=== PATIENT | female | born 1990 | race African-American/Black ===

== ENCOUNTER 2019-08-06 12:51 | Emergency (ER) | payer OTHER, SELFPAY ==
--- NOTE | 2019-08-06 13:05 | ED_ITS ---
HPI - Wound/Laceration General Chief Complaint: Upper Respiratory Infection Stated Complaint: fever/sore throat Source: patient and RN notes reviewed Mode of arrival: ambulatory Limitations: no limitations Related Data Allergies Allergy/AdvReac Type Severity Reaction Status Date / Time No Known Allergies Allergy Mild Verified 05/20/19 16:40 Review of Systems Review of Systems: Narrative: CONSTITUTIONAL: Denies malaise, chills, sweats, or fever. EYES: Denies visual changes, redness, or discharge. ENT: Reports rhinorrhea, congestion, sinus pain, otalgia and sore throat. CARDIOVASCULAR: Denies chest pain, palpitations, or edema. RESPIRATORY: Reports cough. Denies dyspnea. GASTROINTESTINAL: Denies abdominal pain, nausea, vomiting, diarrhea SKIN: Denies rash or itching. MUSCULOSKELETAL: Denies myalgia. NEUROLOGIC: Denies headache. All systems reviewed & are unremarkable except as noted in HPI and below PMFSH Social History Social History Gender identity (if verbalized by the patient): Female Comments At time of signature, agree with nursing past medical, surgical, social and family history. There is no relevant family history pertinent to the presenting complaint Exam Narrative: Exam Narrative: GENERAL: Well-appearing, well-nourished, and in no acute distress. HEAD: Normocephalic EYES: PERRLA, conjunctivae clear ENT: Nares clear, turbinates edematous and erythematous, clear discharge. Mucous membranes moist. TM pearly rahman with dull light reflex bilaterally; no tragal tenderness. Oropharynx erythematous without lesions. Tonsils enlarged and without exudate, no drooling, no hoarseness, no trismus, uvula midline. NECK: Supple. No lymphadenopathy CHEST: Clear to auscultation, breath sounds equal. No wheezing, rhonchi, rales, or stridor. No respiratory distress, speaks in full sentences. HEART: Regular rate and rhythm. No murmur heard. SKIN: Warm, dry, no rash. NEURO: Alert and oriented x3. PSYCH: Normal mood and affect Course Course Emergency Course: Patient is aware of diagnosis, understands and agrees to treatment plan. Anticipatory guidance given. Patient agrees to follow-up as directed and is aware of reasons to seek care at the emergency department. Portions of this record may have been created with voice recognition software Vital Signs Vital signs: Reviewed. MDM - Wound/Laceration MDM Narrative Medical decision making narrative: Differential diagnosis considered: Strep pharyngitis, allergic rhinitis, upper respiratory tract infection, sinusitis, rhinosinusitis, nasopharyngitis. viral pharyngitis, otitis media, otitis externa, pneumonia, bronchitis, viral cough syndrome, viral syndrome, and influenza. Exam findings show no acute concerns or changes; patient is non- toxic appearing and is in no distress. Patient is appropriate for outpatient treatment and follow-up. Critical Care Time Critical Care Time Critical Care Time: No Discharge Plan Discharge Prescriptions: No Action fluticasone propionate [Flonase Allergy Relief] 50 mcg/actuation spray,suspension 2 spray NASAL DAILY Qty: 9.9 RF: 0
[2019-08-06 13:06] VITALS: BP 136/84; PULSE 93; RESP 20; TEMP 36.8; O2SAT 99
--- NOTE | 2019-08-06 13:32 | ED.URI ---
HPI - URI/Sore Throat General Chief Complaint: Upper Respiratory Infection Stated Complaint: fever/sore throat Time Seen by Provider: 08/06/19 13:32 Source: patient and RN notes reviewed Mode of arrival: ambulatory Limitations: no limitations History of Present Illness HPI Narrative: 20-year-old female presents with concern for 2-day history of cough, sinus congestion, sinus pressure, cold sweats, fever. Denies taking any [id number] medications for symptoms. MD elicited complaint: nasal congestion Related Data Allergies Allergy/AdvReac Type Severity Reaction Status Date / Time No Known Allergies Allergy Mild Verified 08/06/19 13:13 Review of Systems Review of Systems: Narrative: CONSTITUTIONAL: Reports malaise, chills, sweats, fever. EYES: Denies visual changes, redness, or discharge. ENT: Reports rhinorrhea, congestion, sore throat. Denies sinus pain, otalgia CARDIOVASCULAR: Denies chest pain, palpitations, or edema. RESPIRATORY: Reports cough. Denies dyspnea. GASTROINTESTINAL: Denies abdominal pain, nausea, vomiting, diarrhea SKIN: Denies rash or itching. MUSCULOSKELETAL: Denies myalgia. NEUROLOGIC: Denies headache. All systems reviewed & are unremarkable except as noted in HPI and below PMFSH Social History Social History Gender identity (if verbalized by the patient): Female Comments At time of signature, agree with nursing past medical, surgical, social and family history. There is no relevant family history pertinent to the presenting complaint Exam Narrative: Exam Narrative: GENERAL: Well-appearing, well-nourished, and in no acute distress. HEAD: Normocephalic EYES: PERRLA, conjunctivae clear ENT: Nares clear, turbinates edematous and erythematous, clear discharge. Mucous membranes moist. TM pearly rahman with dull light reflex bilaterally; no tragal tenderness. Oropharynx mildly erythematous without lesions. Tonsils not enlarged and without exudate, no drooling, no hoarseness, no trismus, uvula midline. NECK: Supple. No lymphadenopathy CHEST: Clear to auscultation, breath sounds equal. No wheezing, rhonchi, rales, or stridor. No respiratory distress, speaks in full sentences. HEART: Regular rate and rhythm. No murmur heard. SKIN: Warm, dry, no rash. NEURO: Alert and oriented x3. PSYCH: Normal mood and affect Course Course Emergency Course: Patient is aware of diagnosis, understands and agrees to treatment plan. Anticipatory guidance given. Patient agrees to follow-up as directed and is aware of reasons to seek care at the emergency department. Portions of this record may have been created with voice recognition software Vital Signs Vital signs: Vital Signs Temperature 98.3 F 08/06/19 13:06 Pulse Rate 93 08/06/19 13:06 Respiratory Rate 20 08/06/19 13:06 Blood Pressure 136/84 08/06/19 13:06 Pulse Oximetry 99 08/06/19 13:06 Temperature 98.3 F 08/06/19 13:06 Pulse Rate 93 08/06/19 13:06 Respiratory Rate 20 08/06/19 13:06 Blood Pressure 136/84 08/06/19 13:06 Pulse Oximetry 99 08/06/19 13:06 Reviewed. Patient has been instructed to follow up with her primary care provider within the next week regarding her elevated blood pressure today. MDM - URI/Sore Throat MDM Narrative Medical decision making narrative: Differential diagnosis considered: Strep pharyngitis, allergic rhinitis, upper respiratory tract infection, sinusitis, rhinosinusitis, nasopharyngitis. viral pharyngitis, otitis media, otitis externa, pneumonia, bronchitis, viral cough syndrome, viral syndrome, and influenza. Exam findings show no acute concerns or changes; patient is non-toxic appearing and is in no distress. Patient is appropriate for outpatient treatment and follow-up. Lab Data Attestation: I reviewed the patient's lab results. Labs: Influenza A Screen Negative Reference Range: Negative Influenza B Screen Negative Reference Range: Negative Strep Screen
== END 2019-08-06 13:57 | disposition home or self-care (01) ==
PROVIDERS: Emergency Provider Nurse Practitioner
DX: B34.9 Viral infection, unspecified (principal)
CPT/HCPCS: 87081; 87804; 87880; 99213; G0463

== ENCOUNTER 2019-12-10 10:20 | Emergency (ER) | payer OTHER, SELFPAY ==
[2019-12-10 10:33] VITALS: BP 140/82; PULSE 95; RESP 20; TEMP 36.3; O2SAT 99
--- NOTE | 2019-12-10 10:44 | ED.SKABFB ---
HPI - Skin/Abscess/Foreign Bdy General Chief complaint: Skin/Abscess/Foreign Body Stated complaint: rash Time Seen by Provider: 12/10/19 10:44 Source: patient and RN notes reviewed Mode of arrival: ambulatory Limitations: no limitations History of Present Illness HPI narrative: 29-year-old female who presents to [facility] care with complaints of developing raised red rash under left eye with minimal swelling to cheek after eating pineapple yesterday. Patient states that itching has increased and she did take Claritin last night for her symptoms. Patient denies any difficulty swallowing or any difficulty with her breathing, denies any drainage from her left eye, no visual changes,or any redness to sclera or conjunctiva. complaint: rash Onset (ago): day(s) (1) Tetanus up to date: yes Location: face Severity: mild Severity scale (1-10): 2 Quality: pruritic Relieving factors: none Exacerbating factors: none Context: other (pineapple) Associated symptoms: itching Treatments prior to arrival: other (Claritin) Related Data Allergies Allergy/AdvReac Type Severity Reaction Status Date / Time No Known Allergies Allergy Mild Verified 08/06/19 13:13 Review of Systems Review of Systems: Narrative: CONSTITUTIONAL: Denies fever, chills, or sweats. EYES: Denies visual changes, redness, or discharge, rash under left eye and on cheek ENT: Denies rhinorrhea, congestion, sore throat, or otalgia. CARDIOVASCULAR: Denies chest pain, palpitations, or edema. RESPIRATORY: Denies cough or dyspnea. GASTROINTESTINAL: Denies abdominal pain, nausea, vomiting, or diarrhea. GENITOURINARY: Denies dysuria or hematuria. SKIN: positive rash or itching under left eye MUSCULOSKELETAL: Denies back pain, joint pain, or myalgia. NEUROLOGIC: Denies headache, numbness, or weakness. PSYCHIATRIC: Denies anxiety or depression. All systems reviewed & are unremarkable except as noted in HPI and below PMFSH Past Medical History Medical History (Updated 12/10/19 @ 11:15 by Nikia Pruett NP) Allergic sinusitis Surgical History Surgical History (Updated 12/10/19 @ 11:07 by Nikia Pruett NP) S/P foot surgery, right Social History Social History (Updated 12/10/19 @ 11:07 by Nikia Pruett NP) Smoking status: Light tobacco smoker Tobacco type: cigarettes Living arrangements: with family Gender identity (if verbalized by the patient): Female Comments At time of signature, agree with nursing past medical, surgical, social history. There is no relevant family history pertinent to the presenting complaint Exam Narrative: Exam Narrative: GENERAL: Well-appearing, well-nourished, and in no acute distress. HEAD: Normocephalic, atraumatic. EYES: PERRLA and EOMI.red raised rash with mild swelling to area under left eye and cheek with itching ENT: Nares clear, no rhinorrhea or epistaxis. Mucous membranes moist. TM's normal, throat pink with no lesions or exudates. NECK: Supple.no lymphadenopathy CHEST: Clear to auscultation. No respiratory distress.SAO2 99% on room air. HEART: Regular rate and rhythm. No murmur heard. Normal peripheral pulses. ABDOMEN: Soft, nontender, nondistended, normal active bowel sounds. EXTREMITIES: Normal range of motion. No edema. SKIN: Warm, dry, rash under left eye and cheek pruritic with no pustules noted or vesicles NEURO: No focal deficits. Alert and oriented x3. Course Vital Signs Vital signs: Vital Signs Temperature 36.3 C L 12/10/19 10:33 Pulse Rate 95 12/10/19 10:33 Respiratory Rate 12/10/19 10:33 Blood Pressure 140/82 12/10/19 10:33 Pulse Oximetry 99 12/10/19 10:33 Temperature 36.3 C L 12/10/19 10:33 Pulse Rate 95 12/10/19 10:33 Respiratory Rate 12/10/19 10:33 Blood Pressure 140/82 12/10/19 10:33 Pulse Oximetry 99 12/10/19 10:33 MDM - Skin/Abscess/Foreign Bdy Differential Diagnosis Differential diagnosis: Likely urticaria, cellulitis, contact dermatitis and other
== END 2019-12-10 11:05 | disposition home or self-care (01) ==
PROVIDERS: Emergency Provider Registered Nurse
DX: L27.2 Dermatitis due to ingested food (principal); F17.210 Nicotine dependence, cigarettes, uncomplicated
CPT/HCPCS: 99213; G0463

== ENCOUNTER 2020-06-12 14:40 | Outpatient (CLI) | payer OTHER, MEDICAID, SELFPAY ==
--- NOTE | ~2020-06-12 | US_ITS ---
EXAMINATION: US OB <= 14 weeks fetus DATE: 06/12/2020 15:31 INDICATION: First trimester dating TECHNIQUE: Real-time pelvic transabdominal and transvaginal ultrasound was performed. COMPARISON: None. FINDINGS: The uterus measures 13.3 x 7.0 x 8.8 cm. There is a 5.1 cm intramural fibroid of the uterin e fundus. There is an intrauterine gestational sac. A yolk sac is identified. heart motion is identified measuring 168 beats per minute (bpm) by M-mode Doppler. The crown rump length measur es 2.7 cm , which correlates with an estimated gestational age of 9 weeks and 3 day(s) (+/-) 6 day(s) . The right ovary measures 2.6 x 3.5 x 2.6 cm. The left ovary measures 3.1 x 2.2 x 2.0 cm. There is nor mal vascular flow in the ovaries. There is no free fluid in the pelvis. IMPRESSION: 1. Live intrauterine with an estimated gestational age of 9 weeks and 3 day(s) (+/-) 6 day( s) and an estimated delivery date of 01/12/2021. 2. Intramural fibroid of the uterine fundus. Reviewed, dictated and finalized at location A. SE BLENDER IMPRESSION: 1. Live intrauterine with an estimated gestational age of 9 weeks and 3 day(s) (+/-) 6 day(s) and an estimated delivery date of 01/12/2021. 2. Intramural fibroid of the uterine fundus.
== END 2020-06-12 14:41 | disposition home or self-care (01) ==
PROVIDERS: PCP Physician Assistant; Visit Provider Obstetrics & Gynecology
DX: Z34.90 Encounter for supervision of normal pregnancy, unspecified, unspecified trimester (principal); Z3A.09 9 weeks gestation of pregnancy; D25.1 Intramural leiomyoma of uterus
CPT/HCPCS: 76801

== ENCOUNTER 2020-07-05 12:49 | Outpatient (CLI) | payer OTHER, MEDICAID, SELFPAY ==
--- NOTE | ~2020-07-05 | US_ITS ---
EXAMINATION: US OB <= 14 weeks fetus DATE: 07/05/2020 13:15 INDICATION: survey TECHNIQUE: Real-time transabdominal obstetric ultrasound. FINDINGS: Ultrasound dated 06/12/2020 The uterus measures 14.9 x 6 9.5 x 7.3 cm. There is an intrauterine gestational sac, with pole identified. The crown rump length measures 6.78 cm.. heart tones are identified measuring 15 7. IMPRESSION: 1. SL IUP with an EGA of 12 weeks, 5 days (EDC by current ultrasound of 01/12/2021). Reviewed, dictated and finalized at location B. ENT DESIGNER IMPRESSION: 1. SL IUP with an EGA of 12 weeks, 5 days (EDC by current ultrasound of 01/13/20).
== END 2020-07-05 12:50 | disposition home or self-care (01) ==
PROVIDERS: PCP Physician Assistant; Visit Provider Obstetrics & Gynecology
DX: Z34.90 Encounter for supervision of normal pregnancy, unspecified, unspecified trimester (principal); Z3A.12 12 weeks gestation of pregnancy
CPT/HCPCS: 76801

== ENCOUNTER 2020-09-02 10:09 | Outpatient (CLI) | payer OTHER, MEDICAID, SELFPAY ==
--- NOTE | ~2020-09-02 | US_ITS ---
EXAMINATION: US OB follow up DATE: 09/02/2020 10:45 INDICATION: Routine care during second trimester TECHNIQUE: Real-time ultrasound of the pelvis was performed. The interpreting radiologist was not pre sent for the study. COMPARISON: None. FINDINGS: There is a single living fetus in breech presentation. The placenta is posterior and 4.8 cm from the internal cervical os. cardiac activity and movement are noted. heart rate is 165 beats per minute (bpm). The amniotic fluid index is 15.4 cm which is normal. The following biometric data were obtained: Biparietal diameter (BPD): 4.8 cm; head circumference (HC): 18.2 cm; abdominal circumference (AC): 15 .6 cm; femur length (FL): 3.3 cm. These measurements are concordant. Estimated weight is 372 g +/- 55 g, which correlates with the 23rd percentile when 01/12/2021 is used as estimated date of delivery. As single measurements, these parameters are each equal to the following estimated gestational ages w ith ranges of +/- 2 standard deviations: BPD: 20 weeks 5 days +/- 1 weeks 5 days. HC: 20 weeks 5 days +/- 1 weeks 3 days. AC: 20 weeks 5 days +/- 2 weeks 0 days. FL: 20 weeks 5 days +/- 1 weeks 6 days. estimated gestational age based solely on measurements from this exam is 20 weeks 5 days +/- 1 weeks 3 days. IMPRESSION: 1. Single living fetus in breech presentation. 2. Estimated weight is 372 g +/- 55 g, which correlates with the 23rd percentile when 01/12/2021 is used as estimated date of delivery. 3. Normal amniotic fluid index. Reviewed, dictated and finalized at location A. IMPRESSION: 1. Single living fetus in breech presentation. 2. Estimated weight is 372 g +/- 55 g, which correlates with the 23rd per centile when 01/12/2021 is used as estimated date of delivery. 3. Normal amniotic fluid index.
== END 2020-09-02 10:10 | disposition home or self-care (01) ==
PROVIDERS: PCP Physician Assistant; Visit Provider Obstetrics & Gynecology
DX: Z34.92 Encounter for supervision of normal pregnancy, unspecified, second trimester (principal); Z3A.20 20 weeks gestation of pregnancy
CPT/HCPCS: 76816

== ENCOUNTER 2020-11-03 10:51 | Outpatient (CLI) | payer OTHER, MEDICAID, SELFPAY ==
--- NOTE | ~2020-11-03 | US_ITS ---
EXAMINATION: US OB follow up DATE: 11/03/2020 11:14 INDICATION: Routine care during third trimester of . TECHNIQUE: Real-time ultrasound of the pelvis was performed. The interpreting radiologist was not pre sent for the study. COMPARISON: 09/02/2020 and 06/12/2020 FINDINGS: There is a single living fetus in vertex presentation. The placenta is posterior fundal. heart rate is 138 beats per minute (bpm). The amniotic fluid index is 8.4 cm, which is between [address] below the mean (2.5th%, 5%-97.5%: 8.2, 9.0-23.4 at 30 weeks estimated gestational a ge). The following biometric data were obtained: BPD: 7.7 cm -> 30 weeks 5 days Head circumference: 27.8 cm -> 30 weeks 3 days Abdominal circumference: 26.9 cm -> 31 weeks 0 days Femur length: 5.9 cm -> 30 weeks 5 days These measurements are concordant. Head circumference to abdominal circumference ratio: 1.03 (normal range 0.96-1.18). Estimated weight: 1641 g (+/-) 246 g or 3 lbs. 10 oz. (+/-) 9 oz. IMPRESSION: 1. Single living fetus in vertex presentation with heart rate of 138 bpm. 2. Oligohydramnios with amniotic fluid index of 8.4 cm which is between 2 and 3 standard deviations b elow the mean for 30 weeks estimated gestational age. 3. Estimated weight is 66th percentile by Hadlock criteria when 01/12/2021 is used as the estima josue date of delivery (RACHEL). Please correlate with clinical information or earlier ultrasounds for mos t accurate RACHEL. Reviewed, dictated and finalized at location A. IMPRESSION: 1. Single living fetus in vertex presentation with heart rate of 138 bpm. 2. Oligohydramnios with amniotic fluid index of 8.4 cm which is between 2 and 3 standard deviations below the mean for 30 weeks estimated gestational age. 3. Estimated weight is 66th percentile by Hadlock criteria when 01/12/2021 is used as the estimated date of delivery (RACHEL). Please correlate with clinica l information or earlier ultrasounds for most accurate RACHEL.
== END 2020-11-03 10:52 | disposition home or self-care (01) ==
LOC: ANHIMG 10:53
PROVIDERS: PCP Physician Assistant; Visit Provider Obstetrics & Gynecology
DX: Z34.93 Encounter for supervision of normal pregnancy, unspecified, third trimester (principal); Z3A.30 30 weeks gestation of pregnancy
CPT/HCPCS: 76816

== ENCOUNTER 2020-12-31 13:50 | Outpatient (CLI) | payer OTHER, MEDICAID, SELFPAY ==
[2020-12-31 14:21] LABS: Hematocrit 33.1 % (37.0-47.0); Hemoglobin 10.5 g/dL (12.0-15.0); Mean Corpuscular HGB Conc 31.7 g/dl (32-36); Mean Corpuscular Hemoglobin 25.1 pg (26-34); Mean Corpuscular Volume 79.2 fl (80-100); Mean Platelet Volume 10.4 fl (7.4-10.4); Platelet Count Result 295 k/mm3 (150-375); Red Blood Count 4.18 M/mm3 (4.2-5.4); Red Cell Distribution Width 15.9 % (11.5-14.5); White Blood Count 7.1 K/mm3 (4.5-10.0)
[2020-12-31 14:32] LABS: Alanine Aminotransferase 8 U/L (4-35); Alkaline Phosphatase 146 U/L (38-126); Anion Gap 6 mmol/L (8-16); Aspartate Amino Transferase 17 U/L (14-36); Bilirubin,Total 0.2 mg/dL (0.2-1.3); Blood Urea Nitrogen 7 mg/dL (7-17); Calcium 8.5 mg/dL (8.4-10.2); Carbon Dioxide 22 mmol/L (22-30); Chloride 104 mmol/L (98-107); Estimated Glomerular Filt Rate > 60; Glucose 87 mg/dL (65-110); Potassium 3.8 mmol/L (3.4-5.0); Sodium 132 mmol/L (137-145); Uric Acid 3.5 mg/dL (2.5-7.5)
== END 2020-12-31 13:51 | disposition home or self-care (01) ==
LOC: ANHLAB 13:54
PROVIDERS: PCP Physician Assistant; Visit Provider Obstetrics & Gynecology
DX: O13.9 Gestational [pregnancy-induced] hypertension without significant proteinuria, unspecified trimester (principal); Z3A.00 Weeks of gestation of pregnancy not specified
CPT/HCPCS: 36415; 80053; 84550; 85027

== ENCOUNTER 2021-01-03 19:00 | Inpatient (IN) | payer OTHER, MEDICAID, SELFPAY ==
[2021-01-03] VITALS (12 sets, daily range): BP systolic 115–159; BP diastolic 74–101; PULSE 80–104; RESP 18; TEMP 36.9; BMI 52.7
--- NOTE | 2021-01-03 19:00 | LDADM ---
This patient, Ebonie Henley, was admitted to Labor/Delivery/Recovery 107 on 01/03/21 at 19:00. Plans for labor, pain management and were discussed with patient. Patient/family oriented to hospital policies and general routines including ID bracelet, bed and alarms, visiting hours, pain management, procedures, bathroom and other care routines, personal items, smoking policy, room service/diet and guest tray routines, security routines, and visiting hours. Patient/Family are encouraged to report perceived risks to care and to ask questions if they do not understand what they are told or what they should do. See OBIX for further documentation.
--- NOTE | 2021-01-03 19:40 | WPDANESEPP ---
Anes - Eval Pre Procedure Procedure: Labor epidural Date/Time: 01/03/21 19:40 Surgeon: Sonia Preop Diagnosis: Abd pain with contractions Pre Op Diagnosis: IOL Patient Data Age: 30 Gender: F Height: 1.7 m Weight: 152.7 kg Last Vital Signs Pulse 97 01/03/21 19:31 BP 148/83 H 01/03/21 19:31 Allergies Allergy/AdvReac Type Severity Reaction Status Date / Time No Known Allergies Allergy Mild Verified 12/21/20 14:41 Home Medications Medication Instructions Recorded Confirmed Type acyclovir 800 mg PO DAILY 12/21/20 12/21/20 History aspirin [Aspirin Low Dose] 81 mg PO DAILY 12/21/20 12/21/20 History calcium carbonate-vitamin D3 1 tablet PO DAILY 12/21/20 12/21/20 History folic acid 1 mg PO DAILY 12/21/20 12/21/20 History prenat.vits,cholo,[id number] 1 tablet PO DAILY 12/21/20 12/21/20 History [ #2] progesterone micronized 200 mg PO HS 12/21/20 12/21/20 History pyridoxine (vitamin B6) 25 mg PO DAILY 12/21/20 12/21/20 History Patient hx anesthesia problems: none Family hx anesthesia problems: none PMFSH Past Medical History Medical History Allergic sinusitis Gestational hypertension Morbid obesity with body mass index (BMI) of 50.0 to 59.9 in adult and not yet delivered Surgical History Surgical History S/P foot surgery, right Family History Family History Grandparent Diabetes mellitus Father Hypertension Social History Social History Smoking status: Former smoker Tobacco type: cigarettes Substance use: never Gender identity (if verbalized by the patient): Female Spiritual care concerns: No Exam Day of Procedure 01/03/21 19:40 Patient weight: super morbidly obese Airway: Mallampati scale class II Neurological: alert and oriented
[2021-01-03] MEDS: DINOPROSTONE 10 MG VAG INSERT VAGINAL (19:45)
[2021-01-03 19:50] LABS: Basophils Percent Auto 0.3 % (0.2-1.2); Eosinophils Percent Auto 0.7 % (0-4.4); Hematocrit 33.3 % (37.0-47.0); Hemoglobin 10.6 g/dL (12.0-15.0); Immature Granulocyte Absolute 0.04 K/mm3 (0.00-0.031); Immature Granulocyte Percent A 0.7 % (0-0.5); Lymphocytes Absolute Auto 1.56 K/mm3 (0.9-3.2); Lymphocytes Percent Auto 25.6 % (18.3-44.2); Mean Corpuscular HGB Conc 31.8 g/dl (32-36); Mean Corpuscular Hemoglobin 25.1 pg (26-34); Mean Corpuscular Volume 78.7 fl (80-100); Mean Platelet Volume 10.5 fl (7.4-10.4); Monocytes Absolute Auto 0.6 K/mm3 (0.1-0.6); Monocytes Percent Auto 9.5 % (2.6-8.5); Neutrophils Absolute Auto 3.9 K/mm3 (1.3-6.7); Neutrophils Percent Auto 63.2 % (45.5-73.1); Platelet Count Result 306 k/mm3 (150-375); Red Blood Count 4.23 M/mm3 (4.2-5.4); Red Cell Distribution Width 15.9 % (11.5-14.5); White Blood Count 6.1 K/mm3 (4.5-10.0)
[2021-01-03 20:01] LABS: Uric Acid 3.8 mg/dL (2.5-7.5)
[2021-01-03 20:19] LABS: Alanine Aminotransferase 10 U/L (4-35); Albumin Level 3.3 g/dL (3.5-5.1); Alkaline Phosphatase 162 U/L (38-126); Anion Gap 7 mmol/L (8-16); Aspartate Amino Transferase 20 U/L (14-36); Bilirubin,Total 0.3 mg/dL (0.2-1.3); Blood Urea Nitrogen 5 mg/dL (7-17); Calcium 9.1 mg/dL (8.4-10.2); Carbon Dioxide 21 mmol/L (22-30); Chloride 109 mmol/L (98-107); Estimated CRCL calculation 157 ml/min; Estimated Glomerular Filt Rate > 60; Glucose 114 mg/dL (65-110); Potassium 3.8 mmol/L (3.4-5.0); Sodium 137 mmol/L (137-145)
[2021-01-03 22:04] LABS: Add Urine Microscopic? YES; Appearance Urine Cloudy (Clear); Bacteria Urine Trace /hpf; Bilirubin Urine Negative (Negative); Blood Urine Negative (Negative); Color Urine Yellow (Yellow); Glucose Urine UA Negative (Negative); Ketones Urine Negative (Negative); Leukocyte Esterase Ur Negative LEU/UL (NEGATIVE); Mucus Urine Moderate /lpf; Nitrate Urine Negative (Negative); Protein Urine 2+ mg/dL (Negative); RBC Urine 0-2 /hpf (0-2); Squamous Epithelial Cell Urine Many /hpf (Few)
[2021-01-03 22:15] LABS: Specific Grav Ur 1.032 (1.001-1.035)
[2021-01-03 23:15] LABS: Total Protein Urine Random 10 mg/dL
[2021-01-04] VITALS (246 sets, daily range): BP systolic 104–186; BP diastolic 49–133; PULSE 72–195; RESP 16–22; TEMP 36.6–37.1; O2SAT 97–100
[2021-01-04 03:56] LABS: Creatinine Urine 364.8 mg/dL; Ur Ttl Prot Creatinine Ratio 0.03 mg/mg (0-0.20)
[2021-01-04] MEDS: fentaNYL CITRATE INJ (*CRX) 100 MCG/2 ML VIAL 50 MCG IV PUSH ×2 (04:57→06:20)
[2021-01-04] MEDS: LACTATED RINGERS 1,000 ML 125 ML IV CONT (06:35)
[2021-01-04] MEDS: LABETALOL HCL INJ 100 MG/20 ML VIAL 20 MG IV PUSH ×2 (06:43→14:41)
[2021-01-04] MEDS: OXYTOCIN 30 UNITS/NS 500 ML 30 UNITS/500 ML BAG IV CONT (08:30)
--- NOTE | 2021-01-04 08:32 | PM.IMHP ---
H&P: HPI History of Present Illness Date/Time: 01/04/21 08:32 30yo at 38w6d presenting for IOL due to gestational HTN and oligohydramnios. care with Dr. Sebastian. Denies headaches, blurry vision, scotomas. Chief Complaint: induction of labor Review of Systems Constitutional: Constitutional: Reports no additional constitutional complaints Cardiovascular: Cardiovascular: Reports no additional cardiovascular complaints Respiratory: Respiratory: Reports no additional respiratory complaints Gastrointestinal: Gastrointestinal: Reports no additional gastrointestinal complaints Genitourinary: Genitourinary: Reports no additional female genitourinary complaints Musculoskeletal: Musculoskeletal: Reports no additional musculoskeletal complaints Integumentary/Breasts: Skin/Breast: Reports system reviewed and no additional complaints, except as docu Neurologic: Reports system reviewed and no additional complaints, except as documented Psychiatric: Psychiatric: Reports no additional psychiatric complaints Endocrine: Endocrine: Reports no additional endocrine complaints Hematologic/Lymphatic: Hematologic/Lymphatic: Reports no additional hematologic/lymphatic complaints Allergic/Immunologic: Allergic/Immunologic: Reports no additional allergic/immunologic complaints [facility] Past Medical History Medical History (Updated 01/04/21 @ 12:31 by Paris Scott DO) Allergic sinusitis Gestational hypertension Morbid obesity with body mass index (BMI) of 50.0 to 59.9 in adult and not yet delivered Surgical History Surgical History S/P foot surgery, right Family History Family History Grandparent Diabetes mellitus Father Hypertension Social History Social History Smoking status: Former smoker Tobacco type: cigarettes Substance use: never Gender identity (if verbalized by the patient): Female Spiritual care concerns: No Meds Home Medications and Allergies Home Medications Medication Instructions Recorded Confirmed Type acyclovir 800 mg PO DAILY 12/21/20 01/03/21 History aspirin [Aspirin Low Dose] 81 mg PO DAILY 12/21/20 01/03/21 History calcium carbonate-vitamin D3 1 tablet PO DAILY 12/21/20 01/03/21 History folic acid 1 mg PO DAILY 12/21/20 01/03/21 History prenat.vits,cholo,[id number] 1 tablet PO DAILY 12/21/20 01/03/21 History [ #2] pyridoxine (vitamin B6) 25 mg PO DAILY 12/21/20 01/03/21 History Allergies Allergy/AdvReac Type Severity Reaction Status Date / Time No Known Allergies Allergy Mild Verified 12/21/20 14:41 Vital Signs Vital Signs - 24 hr 01/03/21 19:23 01/03/21 19:31 01/03/21 19:40 Temperature 36.9 C Pulse Rate 104 H 97 Respiratory Rate 18 Blood Pressure 159/101 H 148/83 H Pulse Oximetry 01/03/21 19:46 01/03/21 20:01 01/03/21 20:16 Temperature Pulse Rate 89 88 90 Respiratory Rate Blood Pressure 154/81 H 155/95 H 159/75 H Pulse Oximetry 01/03/21 20:31 01/03/21 20:41 01/03/21 20:46 Temperature Pulse Rate 86 88 Respiratory Rate 18 Blood Pressure 144/74 H 151/89 H Pulse Oximetry 01/03/21 21:02 01/03/21 21:16 01/03/21 21:31 Temperature Pulse Rate 87 80 92 Respiratory Rate Blood Pressure 115/90 137/89 146/82 H Pulse Oximetry 01/04/21 00:21 01/04/21 01:59 01/04/21 02:01 Temperature Pulse Rate 75 86 82 Respiratory Rate Blood Pressure 141/87 H 155/131 H 160/78 H Pulse Oximetry 01/04/21 02:04 01/04/21 02:12 01/04/21 02:31 Temperature 36.9 C Pulse Rate 87 82 Respiratory Rate 18 Blood Pressure 157/72 H 152/84 H Pulse Oximetry 01/04/21 04:07 01/04/21 04:50 01/04/21 04:59 Temperature 36.9 C Pulse Rate 89 85 Respiratory Rate 18 Blood Pressure 178/93 H 176/106 H Pulse Oximetry 01/04/21 05:
[2021-01-04 13:14] LABS: Rapid Plasma Reagin Non-Reactive (NonReactive)
[2021-01-04] MEDS: LACTATED RINGERS 1,000 ML 75 ML IV CONT (15:25)
[2021-01-04] MEDS: MAGNESIUM SULF 4 GM/WATER100ML 4 GM/100 ML BAG IVPB (15:25)
[2021-01-04] MEDS: MAGNESIUM SULF 20GM/WATER500ML 500 ML 50 MG IV CONT (15:56)
--- NOTE | 2021-01-04 17:20 | PM.OBPNVD ---
OB - PN: Subj Subjective Date/time seen: 01/04/21 17:20 Severe range BPs more than 4 hours apart. Will initiate magnesium sulfate for gHTN with severe features. OB - PN: Obj Data Labs CBC & Chem 7: 01/03/21 19:39 01/03/21 19:39 Labs: Laboratory Results - last 24 hr 01/03/21 01/03/21 01/03/21 19:39 19:39 19:39 WBC 6.1 RBC 4.23 Hgb 10.6 L Hct 33.3 L MCV 78.7 L MCH 25.1 L MCHC 31.8 L RDW 15.9 H Plt Count 306 MPV 10.5 H Immature Gran % (Auto) 0.7 H Neut % (Auto) 63.2 Lymph % (Auto) 25.6 Mcminn % (Auto) 9.5 H Eos % (Auto) 0.7 Baso % (Auto) 0.3 Lymph # (Auto) 1.56 Mcminn # (Auto) 0.6 Eos # (Auto) 0.0 Baso # (Auto) 0.0 Abs Immat Gran (auto) 0.04 H Absolute Neuts (auto) 3.9 Absolute Nucleated RBC 0.0 Nucleated RBC % 0.0 Sodium Potassium Chloride Carbon Dioxide Anion Gap BUN Creatinine Estim Creat Clear Calc Estimated GFR Glucose Uric Acid 3.8 Calcium Total Bilirubin AST ALT Alkaline Phosphatase Total Protein Albumin Urine Color Urine Appearance Urine pH Ur Specific [place] Urine Protein Urine Glucose (UA) Urine Ketones Ur Blood (Man) Urine Nitrate Urine Bilirubin Urine Urobilinogen Ur Leukocyte Esterase Urine RBC Urine WBC Ur Squamous Epith Cells Urine Bacteria Urine Mucus U Random Total Protein Urine Creatinine Protein/Creat Ratio 2 RPR Non-reactive Blood Type Antibody Screen 01/03/21 01/03/21 01/03/21 19:39 19:39 21:50 WBC RBC Hgb Hct MCV MCH MCHC RDW Plt Count MPV Immature Gran % (Auto) Neut % (Auto) Lymph % (Auto) Mcminn % (Auto) Eos % (Auto) Baso % (Auto) Lymph # (Auto) Mcminn # (Auto) Eos # (Auto) Baso # (Auto) Abs Immat Gran (auto) Absolute Neuts (auto) Absolute Nucleated RBC Nucleated RBC % Sodium 137 Potassium 3.8 Chloride 109 H Carbon Dioxide 21 L Anion Gap 7 L BUN 5 L Creatinine 0.70 Estim Creat Clear Calc 157 Estimated GFR > 60 Glucose 114 H Uric Acid Calcium 9.1 Total Bilirubin 0.3 AST 20 ALT 10 Alkaline Phosphatase 162 H Total Protein 7.0 Albumin 3.3 L Urine Color Yellow Urine Appearance Cloudy H Urine pH 6.0 Ur Specific [place] 1.032 Urine Protein 2+ H Urine Glucose (UA) Negative Urine Ketones Negative Ur Blood (Man) Negative Urine Nitrate Negative Urine Bilirubin Negative Urine Urobilinogen 2.0 H Ur Leukocyte Esterase Negative Urine RBC 0-2 Urine WBC 4-6 H Ur Squamous Epith Cells Many H Urine Bacteria Trace Urine Mucus Moderate H U Random Total Protein Urine Creatinine Protein/Creat Ratio 2 RPR Blood Type O Positive Antibody Screen Negative 01/03/21 21:50 WBC RBC Hgb Hct MCV MCH MCHC RDW Plt Count MPV Immature Gran % (Auto) Neut % (Auto) Lymph % (Auto) [place]min[place] % (Auto) Eos % (Auto) Baso % (Auto) Lymph # (Auto) Mcminn # (Auto) Eos # (Auto) Baso # (Auto) Abs Immat Gran (auto) Absolute Neuts (auto) Absolute Nucleated RBC Nucleated RBC % Sodium Potassium Chloride Carbon Dioxide Anion Gap BUN Creatinine Estim Creat Clear Calc Estimated GFR Glucose Uric Acid Calcium Total Bilirubin AST ALT Alkaline Phosphatase Total Protein Albumin Urine Color Urine Appearance Urine pH Ur Specific [place] Urine Protein Urine Glucose (UA) Urine Ketones Ur Blood (Man) Urine Nitrate Urine Bilirubin Urine Urobilinogen Ur Leukocyte Esterase Urine RBC Urine WBC Ur Squamous Epith Cells Urine Bacteria Urine Mucus U Random Total Protein 10 Urine Creatinine 364.8 Protein/Creat Ratio 2 0.03 RPR Blood Type Antibody Screen OB - PN A/P Time Spent With Patie
--- NOTE | 2021-01-04 18:52 | P.PCNOB_ITS ---
OB - Delivery Note Procedure Delivery date: 01/04/21 Procedure: Normal spontaneous vaginal delivery complicated by shoulder dystocia Induction method: AROM, per pitocin protocol and per cervidil protocol Delivery monitor: internal FHT and internal uterine Route of delivery: Laceration Description: Perineal - 2nd Degree Delivery repair: vicryl Specimen: Yes Quantitative Blood Loss (ml): 300 Anesthesia type: Epidural Complications: Shoulder dystocia Narrative: Once she was noted to be complete and ready to push, the labor bed was broken down and legs were placed in stirrups for support. With contractions and maternal efforts, the presented in JUNI position. The head was delivered. Checked for nuchal cord, no nuchal cord noted. Gentle downward traction was applied and the anterior shoulder was unable to be delivered. Shoulder dystocia was diagnosed. Sinan position and Suprapubic pressure initiated. Delivery of the posterior are was successful. Which allowed the to deliver. Total time of shoulder dystocia was 50 seconds. The right arm was the anterior shoulder. started to cry with stimulation, so delayed cord clamping of approximately 1 minute was performed. The cord was clamped and cut. Cord gasses collected. Placenta was delivered spontaneously. IV oxytocin administered and fundal massage applied. Exam was performed to identify any lacerations. 2nd d egree perineal laceration was repaired with 2-0 Vicryl. Good hemostasis noted. Patient tolerated the procedure well. All instrument and sponge counts were correct at the end of the procedure. Reviewed with the patient regarding shoulder dystocia. Questions answered. [place] Date of : 01/04/21 Time of : 18:16 Weeks of gestation at delivery: 38 gender: Male Weight (pounds): 7 Weight (ounces): 10 position: Left Occiput Posterior Placenta delivery description: Spontaneous cord vessel description: 3 Vessels score one minute: 6 score five minutes: 9
[2021-01-04] MEDS: OXYTOCIN 30 UNITS/NS 500 ML 30 UNITS/500 ML BAG 125 UNITS IV CONT (18:54)
[2021-01-04] MEDS: WITCH HAZEL 40 PADS 1 PAD TOPICAL (20:37)
[2021-01-04] MEDS: IBUPROFEN 600 MG TABLET PO (20:37)
[2021-01-04] MEDS: BENZOCAINE 20% AER SPR (*SP) 56 GM CAN 1 SPRAY TOPICAL (20:37)
[2021-01-04] MEDS: LABETALOL HCL 100 MG TABLET 200 MG PO (20:38)
[2021-01-04] MEDS: LACTATED RINGERS 1,000 ML 75 ML (23:10)
[2021-01-05] VITALS (8 sets, daily range): BP systolic 133–147; BP diastolic 74–89; PULSE 82–88; RESP 16; TEMP 36.2–36.8; O2SAT 100
[2021-01-05] MEDS: MAGNESIUM SULF 20GM/WATER500ML 500 ML 50 MG IV CONT ×2 (01:04→11:19)
[2021-01-05 05:51] LABS: Hematocrit 29.9 % (37.0-47.0); Hemoglobin 9.3 g/dL (12.0-15.0)
[2021-01-05] MEDS: LABETALOL HCL 100 MG TABLET 200 MG PO ×2 (09:28→20:50)
[2021-01-05] MEDS: POLYSACCHARIDE IRON COMPLEX 150 MG CAPSULE PO ×2 (09:30→20:51)
[2021-01-05] MEDS: IBUPROFEN 600 MG TABLET PO ×2 (09:30→20:51)
[2021-01-05] MEDS: MULTIVIT/MIN/PREN/FOL AC/IRON TABLET 1 TAB PO (09:30)
--- NOTE | 2021-01-05 09:36 | P.PNOB_ITS ---
OB - PN: Subj Subjective Date/time seen: 01/05/21 09:36 30yo s/p complicated by shoulder dystocia. Doing well this morning, just tired from not being able to sleep well. Pain is well controlled and lochia is decreasing. Breast feeding. OB - PN: Obj Data Labs CBC & Chem 7: 01/05/21 03:45 01/03/21 19:39 Labs: Laboratory Results - last 24 hr 01/03/21 01/05/21 19:39 03:45 Hgb 9.3 L Hct 29.9 L RPR Non-reactive OB - PN A/P Assessment and Plan (1) (normal spontaneous vaginal delivery): Code(s): O80 - Encounter for full-term uncomplicated delivery Status: Acute Assessment and Plan: Routine care Pain management Ambulate (2) Gestational hypertension: Code(s): O13.9 - Gestational [-induced] hypertension without significant proteinuria, unspecified trimester Status: Acute Assessment and Plan: Severe range BPs that required IV labetalol during labor On 24hrs of Magnesium Sulfate On Labetalol 200mg BID (3) Morbid obesity with body mass index (BMI) of 50.0 to 59.9 in adult: Code(s): E66.01 - Morbid (severe) obesity due to excess calories; Z68.43 - Body mass index [BMI] 50.0-59.9, adult Status: Acute Time Spent With Patient Time: Total time spent is greater than 50% in coordination of care (as documented) at patient's floor/unit and/or counseling patient: Exam Const: General: cooperative, healthy appearing, comfortable, no acute distres s, well developed, alert, awake and Physically active Orientation/consciousness: oriented to person, oriented to place and oriented to time Resp: Effort & Inspection: normal respiratory effort, able to speak in complete sentences, no audible wheezes and no cough Cardio: Rate: regular rate GI: Inspection: normal to inspection GI Palp: Yes Soft to palpation, No Tenderness to palpation present (GI), No Guarding due to palpation present (GI) and No Rigid due to palpation Other: fundus firm below umbilicus Neuro: General: oriented to person, oriented to place and oriented to time Psych: Appearance: grossly normal Mental Status: mental status grossly normal Speech and movement: Normal speech and movement present Affect: normal affect Attitude: cooperative Thought process: Normal thought proc ess present Insight: Good insight present (Psych) Judgement: Good judgement present (Psych)
[2021-01-05] MEDS: LACTATED RINGERS 1,000 ML 75 ML IV CONT (12:28)
[2021-01-05] MEDS: DOCUSATE SODIUM 100 MG CAPSULE PO (20:50)
[2021-01-06 05:10] VITALS: BP 127/57; PULSE 86; RESP 16; TEMP 36.7
[2021-01-06 08:30] VITALS: BP 132/75; PULSE 79; RESP 16; RESP 20; TEMP 36.6; O2SAT 100
[2021-01-06 09:21] VITALS: PULSE 79
[2021-01-06] MEDS: IBUPROFEN 600 MG TABLET PO (09:21)
[2021-01-06] MEDS: LABETALOL HCL 100 MG TABLET 200 MG PO (09:21)
[2021-01-06] MEDS: POLYSACCHARIDE IRON COMPLEX 150 MG CAPSULE PO (09:21)
[2021-01-06] MEDS: MULTIVIT/MIN/PREN/FOL AC/IRON TABLET 1 TAB PO (09:21)
[2021-01-06] MEDS: DOCUSATE SODIUM 100 MG CAPSULE PO (09:21)
--- NOTE | 2021-01-06 10:25 | PM.OBDSVD ---
DS: Admitting Diagnosis Admitting Diagnosis Gestational Hypertension DS: Discharge Diagnosis Discharge Diagnosis (1) Gestational hypertension: Qualifiers: Trimester: third trimester Qualified Code(s): O13.3 - Gestational [-induced] hypertension without significant proteinuria, third trimester Code(s): O13.9 - Gestational [-induced] hypertension without significant proteinuria, unspecified trimester Status: Acute Assessment and Plan: DC home with Labetalol 200mg BID (2) Morbid obesity with body mass index (BMI) of 50.0 to 59.9 in adult: Code(s): E66.01 - Morbid (severe) obesity due to excess calories; Z68.43 - Body mass index [BMI] 50.0-59.9, adult Status: Acute (3) (normal spontaneous vaginal delivery): Code(s): O80 - Encounter for full-term uncomplicated delivery Status: Acute OB - DS: Summary Hospital Course Hospital Course: Admitted for IOL secondary to gestational hypertension. Preeclampsia labs were WNL. Developed severe range BPs during labor that required IV Labetalol and was started on magnesium sulfate for seizure prophylaxis. Delivery was complicated by shoulder dystocia. doing well. Continued on post magnesium sulfate for 24hrs after delivery. OB Procedures : None OB Procedures Intrapartum: Spontaneous Vag Delivery OB Procedures: : None Time Spent with Patient Time attestation: Total time spent providing and/or coordinating discharge services: Exam Const: General: cooperative, healthy appearing, comfortable, no acute distress, well developed, alert, awake and Physically active Orientation/consciousness: oriented to person, oriented to place and oriented to time Resp: Effort & Inspection: normal respiratory effort, able to speak in complete sentences, no audible wheezes and no cough Cardio: Rate: regular rate GI: Inspection: normal to inspection Other: fundus firm below umbilicus Neuro: General: oriented to person, oriented to place and oriented to time Psych: Appearance: grossly normal Mental Status: mental status grossly normal Speech and movement: Normal speech and movement present Affect: normal affect Attitude: cooperative Thought process: Normal thought process present Insight: Good insight present (Psych) Judgement: Good judgement present (Psych) DS: Data Data Completed and Pending Pending studies at discharge: Pending at discharge 01/04/21 18:21 Surgical [PTH] Routine Discharge Plan Discharge Attending physician on discharge: Paris Scott Discharging Clinician: Paris Scott Patient Disposition: Home, Self-Care Activity: may shower, no straining and pelvic rest Diet: regular Patient Instructions: Antibiotic Form Stand Alone Forms: General Discharge Information Follow-up/Referrals: Chucho Sebastian MD [Physician] - Discharge Medications: New docusate sodium 100 mg Capsule 100 mg PO BID PRN (Reason: Constipation) Qty: 60 RF: 0 polysaccharide iron complex 150 mg iron Capsule 150 mg PO BIDWM Qty: 90 RF: 0 ibuprofen 600 mg Tablet 600 mg PO Q6H PRN (Reason: Cramping) Qty: 90 RF: 0 labetalol 100 mg Tablet 200 mg PO Q12HR Qty: 90 RF: 2 Continued folic acid 1 mg Tablet 1 mg PO DAILY RF: 0 #2 Tablet 1 tablet PO DAILY RF: 0 calcium carbonate-vitamin D3 600 mg(1,500mg) -400 unit Tablet 1 tablet PO DAILY RF: 0 Discontinued pyridoxine (vitamin B6) 25 mg Tablet 25 mg PO DAILY RF: 0 aspirin [Aspirin Low Dose] 81 mg Tablet,Delayed Release (Dr/Ec) 81 mg PO DAILY RF: 0 acyclovir 800 mg Tablet 800 mg PO DAILY RF: 0 Date of admission: 01/03/21 19:00 Primary Care Provider: Taylor,Jazmyne Jimenes Admitting Provider: Paris Scott Attending physician on admission: Paris Scott Condition: Stable
[2021-01-08 10:51] VITALS: BP 153/89; PULSE 91; RESP 20; TEMP 37.1; O2SAT 100
== END 2021-01-06 12:50 | disposition home or self-care (01) | DRG 806 ==
LOC: ANHLDR 01-04 11:25 → ANHOB2 01-04 22:04
PROVIDERS: Admitting Provider Obstetrics & Gynecology; PCP Physician Assistant; Visit Provider Obstetrics & Gynecology
DX: O14.04 Mild to moderate pre-eclampsia, complicating childbirth (principal); O41.03X0 Oligohydramnios, third trimester, not applicable or unspecified; Z37.0 Single live birth; Z3A.38 38 weeks gestation of pregnancy; O36.8330 Maternal care for abnormalities of the fetal heart rate or rhythm, third trimester, not applicable or unspecified; O70.1 Second degree perineal laceration during delivery; O99.214 Obesity complicating childbirth; E66.01 Morbid (severe) obesity due to excess calories
CPT/HCPCS: 36415; 80053; 81001; 82570; 84156; 84550; 85014; 85018; 85025; 85027; 86592; 86850; 86900; 86901; 87086; 87088; 88307; A9270; J2590; J2795; J3010; J3475; J7120

== ENCOUNTER 2021-04-10 12:30 | Emergency (ER) | payer BC, SELFPAY ==
[2021-04-10 12:33] VITALS: BP 126/66; PULSE 91; RESP 16; TEMP 36.7; O2SAT 100
--- NOTE | 2021-04-10 12:56 | ED.GENADULT ---
HPI - General Adult General Chief complaint: Upper Respiratory Infection Stated complaint: Fever, diarrhea, body aches Time Seen by Provider: 04/10/21 12:44 Source: patient Mode of arrival: ambulatory Limitations: no limitations History of Present Illness HPI narrative: Patient presents with general body aches, fever, chills, diarrhea, runny nose and nasal congestion started last night. Patient is not vaccinated for COVID-19. never had Covid infection, patient denies exposure to anybody known to have Covid. Patient son have similar symptom. Patient denies any headache, shortness of breath, coughing, chest pain, back pain. Related Data Home Medications Medication Instructions Recorded Confirmed calcium carbonate-vitamin D3 1 tablet PO DAILY 12/21/20 01/03/21 folic acid 1 mg PO DAILY 12/21/20 01/03/21 prenat.vits,cholo,[id number] 1 tablet PO DAILY 12/21/20 01/03/21 Allergies Allergy/AdvReac Type Severity Reaction Status Date / Time No Known Allergies Allergy Mild Verified 04/10/21 12:42 Review of Systems Review of Systems: CONSTITUTIONAL: Denies fever, chills, or sweats. EYES: Denies visual changes, redness, or discharge. ENT: Denies rhinorrhea, congestion, sore throat, or otalgia. CARDIOVASCULAR: Denies chest pain, palpitations, or edema. RESPIRATORY: Denies cough or dyspnea. GASTROINTESTINAL: Denies abdominal pain, nausea, vomiting, or diarrhea. GENITOURINARY: Denies dysuria or hematuria. SKIN: Denies rash or itching. MUSCULOSKELETAL: Denies back pain, joint pain, or myalgia. NEUROLOGIC: Denies headache, numbness, or weakness. PSYCHIATRIC: Denies anxiety or depression. [facility] Past Medical History Medical History Allergic sinusitis Gestational hypertension Morbid obesity with body mass index (BMI) of 50.0 to 59.9 in adult and not yet delivered Surgical History Surgical History S/P foot surgery, right Family History Family History Grandparent Diabetes mellitus Father Hypertension Social History Social History Smoking status: Former smoker Tobacco type: cigarettes Substance use: never Gender identity (if verbalized by the patient): Female Spiritual care concerns: No Exam Narrative: General appearance: Well-developed, well-nourished Skin: Normal color Head: Normocephalic, nontraumatic Eyes: Clear conjunctiva ENT: Oropharynx normal, ears normal, nose normal Neck: Supple, nontender Chest and respiratory: Airway patent, no respiratory distress, no accessory muscle use Heart: Regular rate/rhythm Abdomen: Soft, nontender, no organomegaly, quiet bowel sounds Vascular: Normal peripheral pulses, normal capillary refill. Musculoskeletal: Normal range of motion, nontender back Neurologic: Alert and oriented ?3, [employer] is normal as tested, no gross motor deficit Course Course Emergency Course: Stable Vital Signs Vital signs: Vital Signs Temperature 36.7 C 04/10/21 12:33 Pulse Rate 91 04/10/21 12:33 Respiratory Rate 16 04/10/21 12:33 Blood Pressure 126/66 04/10/21 12:33 Pulse Oximetry 100 04/10/21 12:33 Temperature 36.7 C 04/10/21 12:33 Pulse Rate 91 04/10/21 12:33 Respiratory Rate 16 04/10/21 12:33 Blood Pressure 126/66 04/10/21 12:33 Pulse Oximetry 100 04/10/21 12:33 Medical Decision Making MDM Narrative Medical decision making narrative: Viral infection is my concern. Covid swab ordered. Vital Signs Vital Signs: Vital Signs Temperature 36.7 C
[2021-04-11 18:39] LABS: SARS-CoV-2 RNA PCR Negative
== END 2021-04-10 13:32 | disposition home or self-care (01) ==
LOC: ANHED 13:02
PROVIDERS: Emergency Provider Emergency Medicine; PCP Physician Assistant
DX: Z20.822 Contact with and (suspected) exposure to COVID-19 (principal); B34.9 Viral infection, unspecified
CPT/HCPCS: 99283; C9803; U0003; U0005

== ENCOUNTER 2022-04-15 11:20 | Emergency (ER) | payer OTHER, SELFPAY ==
[2022-04-15 11:26] VITALS: BP 151/83; PULSE 136; RESP 20; TEMP 37.7; O2SAT 100
[2022-04-15 12:13] LABS: Influenza A QL RT-PCR Positive (Negative); Influenza B QL RT-PCR Negative (Negative); RSV RNA, RT-PCR Negative (Negative); SARS-CoV-2 RNA PCR Negative
[2022-04-15 13:53] VITALS: BP 109/57; PULSE 117; RESP 20; TEMP 37.2; O2SAT 100
--- NOTE | 2022-04-15 14:56 | ED.FEVER ---
HPI - Fever General Chief Complaint: Fever Stated Complaint: uri symtpoms Time Seen by Provider: 04/15/22 13:53 History of Present Illness HPI Narrative: 31-year-old female presenting to the emergency department for evaluation of body aches and fatigue. Patient states last week she presented to her primary care physician for evaluation of sore throat. At that time patient tested negative for strep and patient was started on amoxicillin for sore throat due to the exudate. Patient states she completed her antibiotics and her sore throat feels improved. Patient states since yesterday she has had worsening body ache and fatigue. Related Data Home Medications Medication Instructions Recorded Confirmed calcium carbonate 600 mg-vitamin 1 tablet PO DAILY 12/21/20 01/03/21 D3 10 mcg (400 unit) tablet folic acid 1 mg tablet 1 mg PO DAILY 12/21/20 01/03/21 prenat.vits,cholo,[id number] 1 tablet PO DAILY 12/21/20 01/03/21 Allergies Allergy/AdvReac Type Severity Reaction Status Date / Time No Known Allergies Allergy Mild Verified 04/10/21 12:42 Review of Systems Review of Systems: CONSTITUTIONAL: Denies fever, chills, or sweats. EYES: Denies visual changes, redness, or discharge. ENT: Denies rhinorrhea, congestion, sore throat, or otalgia. CARDIOVASCULAR: Denies chest pain, palpitations, or edema. RESPIRATORY: Cough and congestion GASTROINTESTINAL: Denies abdominal pain, nausea, vomiting, or diarrhea. GENITOURINARY: Denies dysuria or hematuria. SKIN: Denies rash or itching. MUSCULOSKELETAL: Denies back pain, joint pain, or myalgia. NEUROLOGIC: Denies headache, numbness, or weakness. [facility] Past Medical History Medical History Allergic sinusitis Gestational hypertension Morbid obesity with body mass index (BMI) of 50.0 to 59.9 in adult and not yet delivered Surgical History Surgical History S/P foot surgery, right Family History Family History Grandparent Diabetes mellitus Father Hypertension Social History Social History Smoking status: Former smoker Tobacco type: cigarettes Substance use: never Gender identity (if verbalized by the patient): Female Spiritual care concerns: No Exam Narrative: APPEARANCE: Well appearing, no pain, no distress, well-nourished. HEAD: normocephalic, atraumatic. EYES: PERRLA/EOMI, conjunctivae clear. NOSE: Normal no drainage THROAT: Pharynx clear, no exudate. NECK: Supple. No adenopathy, no masses. RESPIRATORY: Airway patent, respirations nonlabored. Clear to auscultation bilaterally, no rales, rhonchi, wheezing. CARDIOVASCULAR: Regular rate and rhythm without murmurs rubs or gallops. ABDOMINAL: Soft, nontender, nondistended, normal bowel sounds MUSCULOSKELETAL: Moves all extremities. Strength/ROM intact, No edema, No calf tenderness. NEURO: Alert. Cranial nerves II through XII intact. Grossly intact SKIN: Warm, dry. Normal Color Course Course Emergency Course: Patient did on the results of her labs showing influenza. Patient was updated on care for home. All questions and concerns were addressed. Reevaluation(s) Reevaluation #1: Patient was updated on the results of her testing showing influenza A. Patient is being provided Vital Signs Vital signs: Vital Signs Temperature 99.8 F H 04/15/22 11:26 Pulse Rate 136 H 04/15/22 11:26 Respiratory Rate 20 04/15/22 11:26 Blood Pressure 151/83 H 04/15/22 11:26 Pulse Oximetry 100 04/15/22 11:26 Oxygen Delivery Room Air 04/15/22 11:26 Temperature 98.9 F 04/15/22 13:53 Pulse Rate 106 H 04/15/22 15:45 Respiratory Rate 20 04/15/22 15:45 Blood Pressure 134/86 04/15/22 15:45 Pulse Oximetry 98 04/15/22 15:45 Oxygen Delivery Room Air 04/15/22 11:26 MDM - Fever Lab
[2022-04-15] MEDS: KETOROLAC 30 MG/ML VIAL (*BKC) IM (15:27)
[2022-04-15 15:45] VITALS: BP 134/86; PULSE 106; RESP 20; O2SAT 98
== END 2022-04-15 15:47 | disposition home or self-care (01) ==
PROVIDERS: Emergency Medicine; Emergency Provider Emergency Medicine; PCP Physician Assistant
DX: J10.1 Influenza due to other identified influenza virus with other respiratory manifestations (principal); Z20.822 Contact with and (suspected) exposure to COVID-19; E66.01 Morbid (severe) obesity due to excess calories; Z68.42 Body mass index [BMI] 45.0-49.9, adult; Z87.891 Personal history of nicotine dependence
CPT/HCPCS: 87637; 96372; 99283; J1885

== ENCOUNTER 2025-02-23 13:16 | Outpatient (CLI) | payer OTHER, SELFPAY ==
--- NOTE | ~2025-02-23 | US_ITS ---
EXAMINATION: US pelvic complete w TV, 02/23/2025 13:19 CDT HISTORY: R93.89 - Abnormal findings on diagnostic imaging of other... Comparison: None Technique: Evans-scale and color Doppler images were obtained. Findings: Uterus: Uterus anteverted 815.1 x 5.9 x 6.5 cm. Anterior uterine body fibroid 4.9 x 4.7 x 5 cm. . Endometrium 1.5 cm. Right Ovary:Right ovary 4.6 x 2.8 x 3.7 cm, no adnexal mass, normal flow. Left Ovary: Left ovary 3 x 1.8 x 3.2 cm, no adnexal mass, normal flow. Free Fluid: None Impression: 1. Large uterine fibroid. Reviewed, dictated and finalized at location P. Impression: 1. Large uterine fibroid.
== END 2025-02-23 13:17 | disposition home or self-care (01) ==
LOC: MICIMG 13:16
PROVIDERS: PCP Nurse Practitioner Family; Visit Provider Nurse Practitioner Family
DX: R93.89 Abnormal findings on diagnostic imaging of other specified body structures (principal); D25.9 Leiomyoma of uterus, unspecified
CPT/HCPCS: 76830; 76856